=== PATIENT | female | born 1990 | race Caucasian/White ===

== ENCOUNTER 2018-09-13 11:05 | Inpatient (IN) | payer MEDICAID ==
[~2018-09-13] VITALS: Ht 165.1 cm; Wt 56.8 kg
[~2018-09-13 11:05] MED LIST: PREN1TAB49 PO
[2018-09-13] MEDS ORDERED: SOD CHLORIDE 0.9% 1,000 ML IV STA ×2 (11:58→13:04)
[2018-09-13] MEDS ORDERED: ONDANSETRON 4 MG INJ IV STA (11:58)
[2018-09-13] MEDS ORDERED: ACETAMINOPHEN 500 MG TAB PO STA (11:58)
[2018-09-13] MEDS ORDERED: morphine 4 MG/ML VIAL IV STA (11:58)
[2018-09-13] MEDS ORDERED: LIDOCAINE 1%/EPI 30 ML INJ INJ STA (13:01)
[2018-09-13] MEDS ORDERED: VANCOMYCIN 1 GM (PMX) 250 ML IVPB STA (13:25)
[2018-09-13] MEDS ORDERED: PIPER-TAZO 3.375 GM IV (PMX) 100 ML IVPB STA (13:25)
[2018-09-13] MEDS ORDERED: LIDOCAINE 1%/EPI (1:100,000) (MDV) 20 ML INJ STA (13:30)
--- NOTE | 2018-09-13 13:47 | ERD ---
ER Documentation Chief Complaint Chief Complaint VAGINAL ABSCESS X 1 WEEK HPI 28 year old female presents with fever and vaginal abscess that she has noted for 5 days. Patient denies medications. She denies nausea, vomiting, diarrhea, constipation or dysuria. She denies STD or , states that she had one female sexual partner about one month ago. ROS All systems reviewed and are negative except as per history of present illness. Medications Home Meds Reported Medications Vits W-Ca,Fe,Fa(<1MG) () 1 Tab Tablet, 1 PO DAILY, #30 08/21/11 Allergies Allergies: Coded Allergies: No Known Allergies (Verified Allergy, Mild, 04/27/10) PMhx/Soc History of Surgery: No Anesthesia Reaction: No Hx Neurological Disorder: No Hx Respiratory Disorders: No Hx Cardiac Disorders: No Hx Psychiatric Problems: No Hx Miscellaneous Medical Probl: No Hx Alcohol Use: No Hx Substance Use: No Hx Tobacco Use: No Physical Exam Vitals Vital Signs Date Temp Pulse Resp B/P (MAP) Pulse Ox O2 O2 Flow FiO2 Time Delivery Rate 09/13/18 101.2 123 18 125/80 99 11:08 (95) Physical Exam GENERAL: well-developed/well-nourished, in no apparent distress, non-toxic appearing HENT: NC/AT EYES: Conjunctiva normal NECK: Supple, no lymphadenopathy PULM: CTA bilaterally, no rales, rhonchi, or wheezing heard CV: Normal S1S2, RRR, good capillary refill GI: Soft, non-distended, tender to palpation in left pelvic region Normal bowel sounds, no masses or organomegaly felt on exam No gross peritonitis, no bruits Negative Rosvings, negative Moran, negative McBurney's point, negative CVAT : PELVIC EXAM: large Bartholin abscess noted in the left vaginal vault BACK: No midline tenderness, no masses EXT: No clubbing, cyanosis, or edema NEURO: Alert and Orientated, gait normal SKIN: Intact, normal turgor PSYCH: Normal mood and mentation Result Diagram: 09/13/18 1229 09/13/18 1229 Results 24 hrs Laboratory Tests Test 09/13/18 12:29 09/13/18 13:14 09/13/18 13:39 White Blood Count 22.2 10^3/ul Red Blood Count 4.84 10^6/ul Hemoglobin 13.8 g/dl Hematocrit 42.6 % Mean Corpuscular Volume 88.0 fl Mean Corpuscular Hemoglobin 28.5 pg Mean Corpuscular 32.4 g/dl Hemoglobin Concent Red Cell Distribution Width 12.7 % Platelet Count 432 10^3/UL Mean Platelet Volume 9.5 fl Immature Granulocytes % 1.000 % Neutrophils % 83.8 % Lymphocytes % 10.0 % Monocytes % 4.6 % Eosinophils % 0.2 % Basophils % 0.4 % Nucleated Red Blood Cells % 0.0 /100WBC Immature Granulocytes # 0.220 10^3/ul Neutrophils # 18.6 10^3/ul Lymphocytes # 2.2 10^3/ul Monocytes # 1.0 10^3/ul Eosinophils # 0.0 10^3/ul Basophils # 0.1 10^3/ul Nucleated Red Blood Cells # 0.0 10^3/ul Sodium Level 135 mmol/L Potassium Level 4.0 mmol/L Chloride Level 94 mmol/L Carbon Dioxide Level 31 mmol/L Anion Gap 10 Blood Urea Nitrogen 6 mg/dl Creatinine 0.60 mg/dl Est Glomerular Filtrat Rate mL/min > 60 mL/min Glucose Level 117 mg/dl Calcium Level 9.1 mg/dl Total Bilirubin 0.4 mg/dl Direct Bilirubin 0.00 mg/dl Indirect Bilirubin 0.4 mg/dl Aspartate Amino Transf (AST/SGOT) 422 IU/L Alanine 392 IU/L Aminotransferase (ALT/SGPT) Alkaline Phosphatase 155 IU/L Total Protein 8.4 g/dl Albumin 4.2 g/dl Globulin 4.20 g/dl Albumin/Globulin Ratio 1.00 Lipase 19 U/L POC Venous Lactate 1.1 mmol/L POC Beta HCG, Qualitative NEGATIVE Current Medications Medications Dose Sig/Claudia Start Time Status Last (Trade) Ordered Route PRN Stop Time Admin Dose Reason Admin Sodium 1,000 ml @ Q1H STAT 09/13/18 DC 09/13/18 Chloride 1,000 mls/hr IV 11:58 12:30 09/13/18 12:57 Morphine 4 mg ONCE STAT 09/13/18 DC 09/13/18 Sulfate IV 11:58 12:29 (morphine) 09/13/18 12:00 Ondansetron 4 mg ONCE STAT 09/13/18 DC 09/13/18 HCl (Zofran IV 11:58 12:28 Inj) 09/13/18 12:00 1,000 mg ONCE STAT 09/13/18 DC 09/13/18 Acetaminophen PO 11:58 12:29 (Tylenol 09/13/18 12:00 Tab) Lidocaine/ 30 ml ONCE STAT 09/13/18 DC Epinephrine INJ 13:01 (Xylocaine 09/13/18 13:02 1%/ Epi (Pf)) Sodium 1,000 ml @ Q1H STAT 09/13/18 09/13/18 Chloride 1,000 mls/hr IV 13:04 13:30 09/13/18 14:03 Vancomycin 250 ml @ ONCE STAT 09/13/18 HCl 125 mls/hr IVPB 13:25 09/13/18 15:24 Piperacillin 100 ml @ ONCE STAT 09/13/18 Sod/ 200 mls/hr IVPB 13:25 Tazobactam 09/13/18 13:54 Sod Lidocaine/ 20 ml ONCE STAT 09/13/18 DC Epinephrine INJ 13:30 (Xylocaine 09/13/18 13:31 1%/ Epi (Mdv) 20 ml) Procedures/MDM 28-year-old female presents with fever and large Bartholin's abscess that she has noted for the past 5 days. Abscess is large and may need operative management. Patient will be admitted to med/surge In the ED, access established. Patient was given a couple liters of fluids. Lab work was obtained, she had leukocytosis of 22.2 and elevated transaminases NICHOLAS DANIEL PA-C Sep 13, 2018 13:47
[2018-09-13] MEDS ORDERED: ACETAMINOPHEN 325 MG TAB PO PRN (14:30)
[2018-09-13] MEDS ORDERED: ONDANSETRON 4 MG INJ IV PRN ×2 (14:30→16:00)
[2018-09-13] MEDS ORDERED: BISACODYL 10 MG SUPP PR PRN (16:00)
[2018-09-13] MEDS ORDERED: NA PHOSPHATE/BIPHOS 133 ML ENEMA PR PRN (16:00)
[2018-09-13] MEDS ORDERED: ZOLPIDEM 5 MG TAB PO PRN (16:00)
[2018-09-13] MEDS ORDERED: morphine 2 MG INJ IV PRN (16:00)
[2018-09-13] MEDS ORDERED: DOCUSATE SODIUM 100 MG CAP PO PRN (16:00)
[2018-09-13] MEDS ORDERED: BISACODYL (EC) 5 MG TAB PO PRN (16:00)
[2018-09-13] MEDS ORDERED: NACL 0.9% 3 ML SYG IV SCH (16:00)
[2018-09-13] MEDS ORDERED: MAGNESIUM HYDROXIDE 30ML CUP PO PRN (16:00)
--- NOTE | 2018-09-13 16:13 | ERD ---
ER Documentation Chief Complaint Chief Complaint VAGINAL ABSCESS X 1 WEEK HPI Patient is a 28-year-old female with no medical problems who presents with left- sided Bartholin's abscess for the past 1 week. The patient's pain has been worsening and swelling has been worsening as well. She has fevers. She has had no treatment as of yet. ROS All systems reviewed and are negative except as per history of present illness. Medications Home Meds Reported Medications Vits W-Ca,Fe,Fa(<1MG) () 1 Tab Tablet, 1 PO DAILY, #30 08/21/11 Allergies Allergies: Coded Allergies: No Known Allergies (Verified Allergy, Mild, 04/27/10) PMhx/Soc Medical and Surgical Hx: pt denies Medical Hx, pt denies Surgical Hx History of Surgery: Yes (RIGHT HAND RING FINGER WITH PIN) Anesthesia Reaction: No Hx Neurological Disorder: No Hx Respiratory Disorders: Yes (ASTHMA) Hx Cardiac Disorders: No Hx Psychiatric Problems: No Hx Miscellaneous Medical Probl: No Hx Alcohol Use: No Hx Substance Use: No Hx Tobacco Use: Yes (1PACK/3DAYS) Smoking Status: Never smoker FmHx Family History: diabetes Physical Exam Vitals Vital Signs Date Temp Pulse Resp B/P (MAP) Pulse Ox O2 O2 Flow FiO2 Time Delivery Rate 09/13/18 98.6 113 20 107/62 99 Room Air 13:46 (77) 09/13/18 101.2 123 18 125/80 99 11:08 (95) Physical Exam Const: Moderate distress Head: Atraumatic Eyes: Normal Conjunctiva ENT: Normal External Ears, Nose and Mouth. Neck: Full range of motion. No meningismus. Resp: Clear to auscultation bilaterally Cardio: Tachycardic rate without murmur Abd: Soft, non tender, non distended. Normal bowel sounds Skin: No petechiae or rashes Back: No midline or flank tenderness Ext: No cyanosis, or edema Neur: Awake and alert : Bartholin's abscess to the left labia Result Diagram: 09/13/18 1229 09/13/18 1229 Results 24 hrs Laboratory Tests Test 09/13/18 12:29 09/13/18 13:14 09/13/18 13:39 09/13/18 14:02 White Blood Count 22.2 10^3/ul Red Blood Count 4.84 10^6/ul Hemoglobin 13.8 g/dl Hematocrit 42.6 % Mean Corpuscular 88.0 fl Volume Mean Corpuscular 28.5 pg Hemoglobin Mean Corpuscular 32.4 g/dl Hemoglobin Concent Red Cell 12.7 % Distribution Width Platelet Count 432 10^3/UL Mean Platelet 9.5 fl Volume Immature 1.000 % Granulocytes % Neutrophils % 83.8 % Lymphocytes % 10.0 % Monocytes % 4.6 % Eosinophils % 0.2 % Basophils % 0.4 % Nucleated Red 0.0 /100WBC Blood Cells % Immature 0.220 10^3/ul Granulocytes # Neutrophils # 18.6 10^3/ul Lymphocytes # 2.2 10^3/ul Monocytes # 1.0 10^3/ul Eosinophils # 0.0 10^3/ul Basophils # 0.1 10^3/ul Nucleated Red 0.0 10^3/ul Blood Cells # Urine Color YELLOW Urine Clarity SLIGHTLY CLOUDY Urine pH 5.0 Urine Specific 1.014 [place] Urine Ketones NEGATIVE mg/dL Urine Nitrite NEGATIVE mg/dL Urine Bilirubin NEGATIVE mg/dL Urine Urobilinogen 2+ mg/dL Urine Leukocyte 2+ Kathie/ul Esterase Urine Microscopic 4 /HPF RBC Urine Microscopic 13 /HPF WBC Urine Squamous FEW /HPF Epithelial Cells Urine Amorphous FEW /HPF Crystals Urine Bacteria FEW /HPF Urine Mucus MODERATE /HPF Urine Hemoglobin NEGATIVE mg/dL Urine Glucose NEGATIVE mg/dL Urine Total NEGATIVE mg/dl Protein Sodium Level 135 mmol/L Potassium Level 4.0 mmol/L Chloride Level 94 mmol/L Carbon Dioxide 31 mmol/L Level Anion Gap 10 Blood Urea 6 mg/dl Nitrogen Creatinine 0.60 mg/dl Est Glomerular > 60 mL/min Filtrat Rate mL/min Glucose Level 117 mg/dl Calcium Level 9.1 mg/dl Total Bilirubin 0.4 mg/dl Direct Bilirubin 0.00 mg/dl Indirect Bilirubin 0.4 mg/dl Aspartate Amino 422 IU/L Transf (AST/SGOT) Alanine 392 IU/L Aminotransferase ( ALT/SGPT) Alkaline 155 IU/L Phosphatase Total Protein 8.4 g/dl Albumin 4.2 g/dl Globulin 4.20 g/dl Albumin/Globulin 1.00 Ratio Lipase 19 U/L POC Venous Lactate 1.1 mmol/L 0.3 mmol/L POC Beta HCG, NEGATIVE Qualitative Current Medications Medications Dose Sig/Claudia Start Time Status Last (Trade) Ordered Route PRN Stop Time Admin Dose Reason Admin Sodium 1,000 ml @ Q1H STAT 09/13/18 DC 09/13/18 Chloride 1,000 mls/hr IV 11:58 12:30 09/13/18 12:57 Morphine 4 mg ONCE STAT 09/13/18 DC 09/13/18 Sulfate IV 11:58 12:29 (morphine) 09/13/18 12:00 Ondansetron 4 mg ONCE STAT 09/13/18 DC 09/13/18 HCl (Zofran IV 11:58 12:28 Inj) 09/13/18 12:00 1,000 mg ONCE STAT 09/13/18 DC 09/13/18 Acetaminophen PO 11:58 12:29 (Tylenol 09/13/18 12:00 Tab) Lidocaine/ 30 ml ONCE STAT 09/13/18 DC Epinephrine INJ 13:01 (Xylocaine 09/13/18 13:02 1%/ Epi (Pf)) Sodium 1,000 ml @ Q1H STAT 09/13/18 DC 09/13/18 Chloride 1,000 mls/hr IV 13:04 13:30 09/13/18 14:03 Vancomycin 250 ml @ ONCE STAT 09/13/18 DC 09/13/18 HCl 125 mls/hr IVPB 13:25 15:26 09/13/18 15:24 Piperacillin 100 ml @ ONCE STAT 09/13/18 DC 09/13/18 Sod/ 200 mls/hr IVPB 13:25 14:01 Tazobactam 09/13/18 13:54 Sod Lidocaine/ 20 ml ONCE STAT 09/13/18 DC Epinephrine INJ 13:30 (Xylocaine 09/13/18 13:31 1%/ Epi (Mdv) 20 ml) Ondansetron 4 mg BRIDGE ORDER 09/13/18 HCl (Zofran PRN IV 14:30 Inj) NAUSEA/VOMITI 09/14/18 14:29 NG 650 mg ER BRIDGE 09/13/18 Acetaminophen PRN PO 14:30 (Tylenol .MILD PAIN 09/14/18 14:29 Tab) 1-3 OR TEMP Sodium 1,000 ml @ Q8H IV 09/13/18 Chloride 125 mls/hr 15:38 IV Flush 3 ml PER 09/13/18 (NS 3 ml) PROTOCOL IV 16:00 Ondansetron 4 mg Q6H PRN 2/15/19 HCl (Zofran IV 16:00 Inj) NAUSEA/VOMITI NG 650 mg Q6H PRN 09/13/18 Acetaminophen PO .PAIN 1-3 16:00 (Tylenol OR TEMP Tab) Morphine 2 mg Q4H PRN 09/13/18 Sulfate IV .SEVERE 16:00 (morphine) PAIN 7-10 Docusate 100 mg Q12H PRN 09/13/18 Sodium PO 16:00 (Colace) .CONSTIPATION Magnesium 30 ml DAILY PRN 09/13/18 Hydroxide PO 16:00 (Milk Of Mag) .CONSTIPATION Bisacodyl 5 mg DAILY PRN 09/13/18 (Dulcolax) PO 16:00 .CONSTIPATION Bisacodyl 10 mg DAILY PRN 09/13/18 (Dulcolax [place] 16:00 Supp) .CONSTIPATION Sodium 133 ml DAILY PRN 09/13/18 Biphosphate/ [place] 16:00 Sodium .CONSTIPATION Phosphate (Fleet Enema) Zolpidem 5 mg QHS PRN 09/13/18 Tartrate PO .INSOMNIA 16:00 (Ambien) Piperacillin 100 ml @ Q6 IVPB 09/13/18 Sod/ 200 mls/hr 19:00 Tazobactam Sod Procedures/MDM Sepsis Documentation: Patient's infectious symptoms have not stabilized and the patient is at risk of rapid decompensation. The patient will be admitted for careful hydration, antibiotic therapy, and infectious source control. SEVERE SEPSIS CRITERIA: Infectious source: Bartholin's abscess End organ damage indicated by: Elevated liver tests SEPSIS MANAGEMENT Time of recognition of sepsis: 1228. Time of recognition of severe sepsis: 1228. Time of recognition of septic shock: No septic shock at this time. 3 HOUR BUNDLE Blood cultures x 2 before broad-spectrum antibiotics: Yes 30 ml/kg NS bolus completed Initial lactate 1.1 Repeat lactate 0.3 SEPTIC SHOCK ASSESSMENT: No lactic acid > 4.0 No persistent hypotension (SBP < 90 or 40 mmHg drop, MAP < 65) despite 30 mL/kg IV fluid bolus VOLUME REASSESSMENT FOR SEPTIC SHOCK: No septic shock at this time PERSISTENT HYPOTENSION TREATMENT: Comfort care no Central line not Required Vasopressor started not required I considered further perfusion assessment with CVP measurement, SCVO2, bedside ultrasound volume assessment, passive leg raise, trial of further fluid bolus. And proceeded with 30 ml/kg fluid bolus of NSS, broad spectrum antibiotics, and admission. I spoke with Dr. Velez from gynecology who is going to take the patient to the operating room for drainage of the Bartholin's abscess. I spoke with the panel team for admission. CRITICAL CARE Critical care time 35 minutes Emergent fluid management while maintaining close respiratory support. Provision of immediate and broad-spectrum antibiotic therapy. Simultaneous assessment for possible sources in order to direct targeted therapy. Consideration for invasive and chemical support to prevent cardiopulmonary collapse. Critical care time is independent of procedures performed. Departure Diagnosis: Primary Impression: Severe sepsis Additional Impression: Abscess Condition: Serious ZITA FARMER MD Sep 13, 2018 16:13
[2018-09-13 16:50] VITALS: BP 106/61; PULSE 100; RESP 18
--- NOTE | 2018-09-13 16:52 | HP ---
Date/Time of Note Date/Time of Note DATE: 09/13/18 TIME: 16:46 Assessment/Plan VTE Prophylaxis SCD contraindicated: low risk/ambulating Pharmacological prophylaxis: NA/contraindicated Pharm contraindication: low risk/ambulating Lines/Catheters IV Catheter Type (from Nrsg): Saline Lock Assessment/Plan Hospital Course Chief complaint perineal wound/growth History of present illness 28-year-old female who is noticed in usual growth wound in her perineum. Possibly has generalized symptoms such as fever. No weight loss nausea vomiting. ER: Stable vital signs [employer] consulted. Past medical history Tobacco abuse Rectal abscess? Cellulitis extremity abscess nephrolithiasis Past surgical history I&D or debridement Social history Tobacco Family history There is no family history of early coronary disease cancer stroke Review of systems Neuro: No loss of speech or vision no focal deficits Cardiovascular: No chest pain no dyspnea no edema Lungs: No cough no wheezing no fever Abdomen: No nausea vomiting no abdominal pain. Positive for perineal pain Genitourinary: Positive for perineal pain no dysuria hematuria or stones Endocrine: No diabetes dyslipidemia or thyroid dysfunction Muscular skeletal: No gait dysfunction no rash no itching no edema Psychiatry: No focal no anxiety agitation depression Constitutional: Possible for chills no Reiger Hematological system: No hematochezia hematuria melena Physical exam No pallor adenopathy icterus Regular Clear Benign No edema Assessment and plan 1. Bartholins cyst possible abscess mod stable consult [employer] -Low perioperative risk, active chest pain dyspnea, may proceed forward to surgery should it be required 2. Abnormal LFTs will evaluate for hepatitis. No pain or jaundice completely asymptomatic 3. Tobacco abuse status post counseling 4. Suspected severe sepsis, on stable continue supportive care Result Diagram: 09/13/18 1229 09/13/18 1229 Results 24hrs Laboratory Tests Test 09/13/18 12:29 09/13/18 13:14 09/13/18 13:39 09/13/18 14:02 White Blood Count 22.2 H Red Blood Count 4.84 Hemoglobin 13.8 Hematocrit 42.6 Mean Corpuscular 88.0 Volume Mean Corpuscular 28.5 L Hemoglobin Mean Corpuscular 32.4 Hemoglobin Concen t Red Cell 12.7 Distribution Width Platelet Count 432 H Mean Platelet 9.5 Volume Immature 1.000 H Granulocytes % Neutrophils % 83.8 H Lymphocytes % 10.0 L Monocytes % 4.6 Eosinophils % 0.2 Basophils % 0.4 Nucleated Red 0.0 Blood Cells % Immature 0.220 H Granulocytes # Neutrophils # 18.6 H Lymphocytes # 2.2 Monocytes # 1.0 H Eosinophils # 0.0 Basophils # 0.1 Nucleated Red 0.0 Blood Cells # Urine Color YELLOW Urine Clarity SLIGHTLY CLOUDY A Urine pH 5.0 Urine Specific 1.014 [place] Urine Ketones NEGATIVE Urine Nitrite NEGATIVE Urine Bilirubin NEGATIVE Urine 2+ H Urobilinogen Urine Leukocyte 2+ H Esterase Urine Microscopic 4 RBC Urine Microscopic 13 H WBC Urine Squamous FEW Epithelial Cells Urine Amorphous FEW A Crystals Urine Bacteria FEW A Urine Mucus MODERATE Urine Hemoglobin NEGATIVE Urine Glucose NEGATIVE Urine Total NEGATIVE Protein Sodium Level 135 Potassium Level 4.0 Chloride Level 94 L Carbon Dioxide 31 Level Anion Gap 10 Blood Urea 6 L Nitrogen Creatinine 0.60 Est Glomerular > 60 Filtrat Rate mL/min Glucose Level 117 Calcium Level 9.1 Total Bilirubin 0.4 Direct Bilirubin 0.00 Indirect 0.4 Bilirubin Aspartate Amino 422 H Transf (AST/SGOT) Alanine 392 H Aminotransferase (ALT/SGPT) Alkaline 155 H Phosphatase Total Protein 8.4 H Albumin 4.2 Globulin 4.20 H Albumin/Globulin 1.00 Ratio Lipase 19 L POC Venous 1.1 0.3 L Lactate POC Beta HCG, NEGATIVE Qualitative HPI/ROS Admit Date/Time Admit Date/Time Sep 13, 2018 at 16:39 PMH/Family/Social Past Medical History Medications Current Medications Sodium Chloride 1,000 ml @ 125 mls/hr Q8H IV ; Start 09/13/18 at 15:38 IV Flush (NS 3 ml) 3 ml PER PROTOCOL IV ; Start 09/13/18 at 16:00 Ondansetron HCl (Zofran Inj) 4 mg Q6H PRN IV NAUSEA/VOMITING; Start 09/13/18 at 16:00 Acetaminophen (Tylenol Tab) 650 mg Q6H PRN PO .PAIN 1-3 OR TEMP; Start 09/13/18 at 16:00 Morphine Sulfate (morphine) 2 mg Q4H PRN IV .SEVERE PAIN 7-10; Start 09/13/18 at 16:00 Docusate Sodium (Colace) 100 mg Q12H PRN PO .CONSTIPATION; Start 09/13/18 at 16:00 Magnesium Hydroxide (Milk Of Mag) 30 ml DAILY PRN PO .CONSTIPATION; Start 09/13/18 at 16:00 Bisacodyl (Dulcolax) 5 mg DAILY PRN PO .CONSTIPATION; Start 09/13/18 at 16:00 Bisacodyl (Dulcolax Supp) 10 mg DAILY PRN DC .CONSTIPATION; Start 09/13/18 at 16:00 Sodium Biphosphate/ Sodium Phosphate (Fleet Enema) 133 ml DAILY PRN DC .CONSTIPATION; Start 09/13/18 at 16:00 Zolpidem Tartrate (Ambien) 5 mg QHS PRN PO .INSOMNIA; Start 09/13/18 at 16:00 Piperacillin Sod/ Tazobactam Sod 100 ml @ 200 mls/hr Q6 IVPB ; Start 09/13/18 at 19:00 Coded Allergies: No Known Allergies (Verified Allergy, Mild, 04/27/10) Social History Smoking Status: Never smoker Exam/Review of Systems Vital Signs Vitals Vital Signs Date Temp Pulse Resp B/P (MAP) Pulse Ox O2 O2 Flow FiO2 Time Delivery Rate 09/13/18 98.6 104 16 109/64 99 Room Air 16:24 (79) JESSA OBANDO MD Sep 13, 2018 16:52
[2018-09-13 18:04] VITALS: Ht 165.1 cm; Wt 56.8 kg
[2018-09-13] MEDS: PIPER-TAZO 3.375 GM IV (PMX) 100 ML IVPB SCH ×2 (18:35→23:36)
[2018-09-13] MEDS: SOD CHLORIDE 0.9% 1,000 ML IV SCH ×2 (18:38→23:38)
[2018-09-13 20:10] VITALS: BP 110/70; PULSE 98; RESP 18
[2018-09-13] MEDS: ACETAMINOPHEN 325 MG TAB PO PRN (21:47)
[2018-09-14] MEDS: morphine 4 MG/ML VIAL IV PRN ×5 (00:14→23:56)
[2018-09-14 02:05] VITALS: BP 103/65; PULSE 92; RESP 18
[2018-09-14] MEDS: PIPER-TAZO 3.375 GM IV (PMX) 100 ML IVPB SCH ×3 (05:23→17:08)
[2018-09-14] MEDS: SOD CHLORIDE 0.9% 1,000 ML IV SCH ×3 (05:23→23:51)
[2018-09-14 09:00] VITALS: BP 118/75; PULSE 102; RESP 18
[2018-09-14] MEDS ORDERED: INFLUENZA VIRUS VACCINE 0.5 ML (DISPENSING) IM* ONE (09:00)
[2018-09-14 14:00] VITALS: BP 120/75; PULSE 104; RESP 18
[2018-09-14] MEDS: ACETAMINOPHEN 325 MG TAB PO PRN (15:35)
[2018-09-14] MEDS ORDERED: morphine 4 MG/ML VIAL IV PRN (18:30)
--- NOTE | 2018-09-14 21:16 | HP ---
Date/Time of Note Date/Time of Note DATE: 09/14/18 TIME: 21:08 Assessment/Plan VTE Prophylaxis Risk score (from Nsg)>0 risk: 2 SCD applied (from Nsg): Yes SCD contraindicated: low risk/ambulating Pharmacological prophylaxis: NA/contraindicated Lines/Catheters IV Catheter Type (from Nrsg): Peripheral IV Central line still needed: No Urinary Cath still in place: No Assessment/Plan Hospital Course Admitted for left labia swelling, tenderness, exam consistent with vulvar abscess No evidence of diabetes. Hemoglobin A1c normal STD lab requested, HIV and hepatitis C, RPR requested Cannot rule out MRSA. Discussed with hospitalist recommended to switch to vancomycin Lactic acid normal. Abscess amenable to drainage Discussed with the patient and RN to start warm compress of the vulva Consider sending the past for culture and sensitivity after drainage Pelvic ultrasound did not reveal any evidence of pyosalpinx, cysts or pelvic abscess Patient will be kept n.p.o. overnight Patient is uncooperative. Frustrated and poor historical Will discuss tomorrow prior to go to the OR about risk and benefit and consent Problems: (1) Abscess Comment: Left vulvar abscess fluctuating. With still some induration in the lateral sort of abscess Consider drainage tomorrow Keep patient n.p.o. after midnight (2) Severe sepsis Status: Acute Comment: Improving. Lactic acid normal Patient had been on broad-spectrum antibiotics CBC tomorrow (3) Transaminitis Status: Chronic Comment: Transaminitis, unclear etiology. Discussed with hospitalist dosage of vancomycin will be adjusted by pharmacy Etiology of transaminitis to be determined. Hepatitis panel requested including hepatitis C and hepatitis A labs Assessment/Plan Left vulvar abscess, clear etiology. STD labs requested, GC/chlamydia and hepatitis B panel negative. HIV and RPR requested Recommended to cover for MRSA. Currently on Zosyn. Discussed with hospitalist suzanne, recommended switch to vancomycin pain control Exam shows > 50 % fluctuating, and able to drainage tomorrow There is a still some induration along the lateral side of the abscess. Recommended to start warm compress Keep the patient n.p.o. after midnight Result Diagram: 09/14/18 0800 09/14/18 0800 Results 24hrs Laboratory Tests Test 09/14/18 07:35 09/14/18 07:48 09/14/18 08:00 Prothrombin Time 16.6 H Prothrombin Time Ratio 1.3 INR International Normalized Ratio 1.33 Hepatitis B Surface Antigen NEGATIVE Hepatitis B Core Total Antibody NEGATIVE Hepatitis C Antibody NEGATIVE White Blood Count 21.3 H Red Blood Count 4.17 L Hemoglobin 12.1 Hematocrit 37.6 Mean Corpuscular Volume 90.2 Mean Corpuscular Hemoglobin 29.0 Mean Corpuscular Hemoglobin Concent 32.2 Red Cell Distribution Width 12.9 Platelet Count 361 Mean Platelet Volume 9.7 Immature Granulocytes % 0.800 H Neutrophils % 86.5 H Lymphocytes % 8.0 L Monocytes % 4.0 Eosinophils % 0.6 Basophils % 0.1 Nucleated Red Blood Cells % 0.0 Immature Granulocytes # 0.160 H Neutrophils # 18.4 H Lymphocytes # 1.7 Monocytes # 0.9 Eosinophils # 0.1 Basophils # 0.0 Nucleated Red Blood Cells # 0.0 Sodium Level 136 Potassium Level 4.4 Chloride Level 102 Carbon Dioxide Level 27 Anion Gap 7 Blood Urea Nitrogen 4 L Creatinine 0.57 Est Glomerular Filtrat Rate mL/min > 60 Glucose Level 95 Hemoglobin A1c 5.2 Calcium Level 8.4 Phosphorus Level 2.8 Magnesium Level 1.8 Total Bilirubin 0.5 Direct Bilirubin 0.00 Indirect Bilirubin 0.5 Aspartate Amino Transf (AST/SGOT) 134 H Alanine Aminotransferase (ALT/SGPT) 238 H Alkaline Phosphatase 151 H Total Protein 6.9 # Albumin 3.4 Globulin 3.50 H Albumin/Globulin Ratio 0.97 Triglycerides Level 44 Cholesterol Level 99 L LDL Cholesterol, Calculated 57 HDL Cholesterol 33 Cholesterol/HDL Ratio 3.0 Thyroid Stimulating Hormone (TSH) 2.390 HPI/ROS Admit Date/Time Admit Date/Time Sep 13, 2018 at 16:39 Hx of Present Illness 28-year-old female admitted to the hospital due to pain and tenderness and swelling in the left labia area as well as fever, concerning for labial abscess patient had been currently receiving broad-spectrum antibiotics, Zosyn for treatment of abscess DISABILITY HEARING OFFICER has been consulted yesterday. For patient evaluation when the patient was in the emergency room Dr. Velez had seen the patient and apparently discussed with the patient regarding drainage in the ER and patient declined drainage without anesthesia. Case has been assigned to sc for evaluation. Patient had been currently admitted to medicine service. Had apparently a temperature 101.2 yesterday but since then only low-grade elevated temperature. Attended to the patient for DISABILITY HEARING OFFICER evaluation. . x1. Patient's symptoms started a week ago with feeling a tender bulge in the left labia that increase in the size as well as tenderness and swelling. Patient reports history of rectal abscess in the past status post drainage. Reports not been sexually active for the last 2 months. Had been heterosexual in the past but had been homosexual for the past few years. Denies using any contraception due to same-sex relationship but denies being sexually active for the last 2 months. Patient denies any history of STD or pelvic infection in the past. Had a CT of the abdomen and pelvis that showed evidence of soft tissue swelling and left inguinal lymphadenopathy with stranding as well as left cystic structure in the pelvis questionable for cyst versus pyosalpinx. Pelvic ultrasound showed normal size uterus and normal adnexa with no evidence of ovarian cyst, abscess or infection. ROS Subjective hx not possible: other (Patient reports discomfort and pain due to swelling in the left labial area, has been taking pain medication) Constitutional: febrile Eyes: no complaints ENT: no complaints Respiratory: no complaints Cardiovascular: no complaints Gastrointestinal: no complaints Genitourinary: other (Pain in the left labia) Musculoskeletal: no complaints PMH/Family/Social Past Medical History Denies any medical problems in the past Medications Current Medications Sodium Chloride 1,000 ml @ 125 mls/hr Q8H IV Last administered on 09/14/18at 1 4:17; Admin Dose 125 MLS/HR; Start 09/13/18 at 15:38 IV Flush (NS 3 ml) 3 ml PER PROTOCOL IV ; Start 09/13/18 at 16:00 Ondansetron HCl (Zofran Inj) 4 mg Q6H PRN IV NAUSEA/VOMITING; Start 09/13/18 at 16:00 Acetaminophen (Tylenol Tab) 650 mg Q6H PRN PO .PAIN 1-3 OR TEMP Last administered on 09/14/18at 15:35; Admin Dose 650 MG; Start 09/13/18 at 16:00 Docusate Sodium (Colace) 100 mg Q12H PRN PO .CONSTIPATION; Start 09/13/18 at 16:00 Magnesium Hydroxide (Milk Of Mag) 30 ml DAILY PRN PO .CONSTIPATION; Start 09/13/18 at 16:00 Bisacodyl (Dulcolax) 5 mg DAILY PRN PO .CONSTIPATION; Start 09/13/18 at 16:00 Bisacodyl (Dulcolax Supp) 10 mg DAILY PRN [place] .CONSTIPATION; Start 09/13/18 at 16:00 Sodium Biphosphate/ Sodium Phosphate (Fleet Enema) 133 ml DAILY PRN [place] .CONSTIPATION; Start 09/13/18 at 16:00 Zolpidem Tartrate (Ambien) 5 mg QHS PRN PO .INSOMNIA; Start 09/13/18 at 16:00 Piperacillin Sod/ Tazobactam Sod 100 ml @ 200 mls/hr Q6 IVPB Last administered on 09/14/18at 17:08; Admin Dose 200 MLS/HR; Start 09/13/18 at 19:00 Morphine Sulfate (morphine) 4 mg Q3H PRN IV SEVERE PAIN LEVEL 7-10 Last administered on 09/14/18at 18:41; Admin Dose 4 MG; Start 09/14/18 at 18:30 Coded Allergies: No Known Allergies (Verified Allergy, Mild, 04/27/10) Past Surgical History Reports history of surgery in her right hand finger, for removal of pin Social History Smoking Status: Current every day smoker Drug Use: other (Patient is frustrated and poorly historian) Exam/Review of Systems Vital Signs Vitals Vital Signs Date Temp Pulse Resp B/P (MAP) Pulse Ox O2 O2 Flow FiO2 Time Delivery Rate 09/14/18 100.3 16:20 09/14/18 104 18 120/75 100 Room Air 14:00 (90) Intake and Output 09/13/18 09/13/18 09/14/18 1414:59 22:59 06:59 IntakeIntake Total 2690 ml 2540 ml BalanceBalance 2690 ml 2540 ml Exam Constitutional: alert, oriented, distress Psych: anxiety, other (Frustrated) Head: normocephalic, atraumatic Eyes: nl conjunctiva, EOMI Genitourinary - Female: other (External genitalia with evidence of moderate to severe swelling of the left labia majora and minora with fluctuation in the middle side as well as some induration in the lateral side of the left labia. Patient has difficulty tolerating the exam. Could not be able to do the pelvic exam. No abnormal discharge in the perineum noted. Right labia normal. Patient refused further examination) Additional Comments PROCEDURE: CT Abdomen and Pelvis with contrast CLINICAL INDICATION: Left lower quadrant abdominal pain TECHNIQUE: Transaxial computed tomographic images of the abdomen and pelvis were obtained following the uneventful administration of 90 mL Omnipaque-300 i ntravenous contrast according to standard protocol. Coronal and sagittal reformatted images were provided. DICOM images are available. Radiation dose: CTDIvol (mGy) = 5.31; total DLP (mGy.cm) = 315.46. One or more of the following dose reduction techniques were used: - Automated exposure control. - Adjustment of the mA and/or kV according to patient size. - Use of iterative reconstruction technique. COMPARISON: None. FINDINGS: The visualized lung bases are clear. There is no pleural effusion. The liver, gallbladder, spleen, pancreas, adrenal glands, and left kidney are normal. There is mild right renal caliectasis without visible obstructing calculus. There is no evidence of intestinal obstruction. The appendix is normal. There is no abdominal aortic aneurysm. There is no free intraperitoneal air or fluid. Urinary bladder is partially distended and unremarkable. Uterus is within normal limits. Cystic right adnexal lesion measuring 5 x 1.5 cm is seen. There is no suspicious mesenteric or retroperitoneal lymphadenopathy. Mildly enlarged left inguinal lymph nodes measure up to 1.6 cm in short axis. Right inguinal lymph nodes measure up to 10 mm in short axis. Multiple subcentimeter bilateral pelvic sidewall lymph nodes are nonspecific. There is moderate presacral edema. There is moderate anterior perineal and peripubic subcutaneous fat stranding and edema. There is an irregular shape fluid collection in the anterior perineal region measuring approximately 4.3 x 1.6 x 2.4 cm. The osseous structures of the abdomen and pelvis are intact. IMPRESSION: 1. Marked inflammatory changes and subcutaneous edema in the anterior perineal and peripubic region with irregular fluid collection in the anterior perineal region concerning for abscess. 2. Cystic right adnexal lesion, may represent ovarian cysts or hydrosalpinx. Recommend follow-up pelvic sonogram. 3. Presacral edema. 4. Mild left inguinal lymphadenopathy. PROCEDURE: US Pelvis. CLINICAL INDICATION: pelvic pain TECHNIQUE: Multiple sonographic images of the pelvis were obtained utilizing transabdominal technique. The images were reviewed on a PACS workstation. COMPARISON: None. FINDINGS: The uterus is normal in size with a normal appearance of the myometrium. The uterus measures 7.9 x 4.2 x 5.4 cm. The endometrial stripe is homogeneous in appearance and has the thickness of 8 mm. The ovaries are normal in size and echogenicity. Normal Doppler flow is identi fied in both ovaries. The right ovary measures 2.9 x 1.5 x 2.4 cm. The left ovary measures 2.9 x 1.8 x 1.9 cm. No free fluid is present within the pelvis. RPTAT: AA IMPRESSION: Unremarkable pelvic ultrasound. HO TOMPKINS MD Sep 14, 2018 21:16
[2018-09-14 21:49] VITALS: BP 142/87; PULSE 92; RESP 18
[2018-09-14] MEDS ORDERED: VANCOMYCIN IV PER PHARMACY XX SCH (22:00)
[2018-09-14] MEDS ORDERED: HYDROmorphONE 0.5 MG/0.5 ML SYG IV PRN (22:00)
--- NOTE | 2018-09-14 22:01 | PN ---
Date/Time of Note Date/Time of Note DATE: 09/14/18 TIME: 21:54 Assessment/Plan VTE Prophylaxis Risk score (from Ns)>0 risk: 2 SCD applied (from [facility] [place] Yes SCD contraindicated: low risk/ambulating Pharmacological prophylaxis: NA/contraindicated Pharm contraindication: surgical contra Lines/Catheters IV C[facility]ter Type (from [facility]): Peripheral IV Urinary Cath still in place: No Assessment/Plan Hospital Course A/P 1. Vulvar abscess, stable cont antibiotics -Low perioperative risk, no active chest pain dyspnea, may proceed forward to surgery from medical standpoint 2. Abn LFTs will evaluate for hepatitis/ hiv. No pain or jaundice, asymptomatic 3. Tobacco abuse status post counseling 4. Suspected severe sepsis, stable cont supportive care 5. H/o Rectal abscess? 6. H/o Cellulitis/ abscess extremity 7. H/o Nephrolithiasis S: mod pain, fever, abn blood culture O: vss; except fever PE No pallor Regular Clear Benign No edema Result Diagram: 09/14/18 0800 09/14/18 0800 Results 24hrs Laboratory Tests Test 09/14/18 07:35 09/14/18 07:48 09/14/18 08:00 Prothrombin Time 16.6 H Prothrombin Time Ratio 1.3 INR International Normalized Ratio 1.33 Hepatitis B Surface Antigen NEGATIVE Hepatitis B Core Total Antibody NEGATIVE Hepatitis C Antibody NEGATIVE White Blood Count 21.3 H Red Blood Count 4.17 L Hemoglobin 12.1 Hematocrit 37.6 Mean Corpuscular Volume 90.2 Mean Corpuscular Hemoglobin 29.0 Mean Corpuscular Hemoglobin Concent 32.2 Red Cell Distribution Width 12.9 Platelet Count 361 Mean Platelet Volume 9.7 Immature Granulocytes % 0.800 H Neutrophils % 86.5 H Lymphocytes % 8.0 L Monocytes % 4.0 Eosinophils % 0.6 Basophils % 0.1 Nucleated Red Blood Cells % 0.0 Immature Granulocytes # 0.160 H Neutrophils # 18.4 H Lymphocytes # 1.7 Monocytes # 0.9 Eosinophils # 0.1 Basophils # 0.0 Nucleated Red Blood Cells # 0.0 Sodium Level 136 Potassium Level 4.4 Chloride Level 102 Carbon Dioxide Level 27 Anion Gap 7 Blood Urea Nitrogen 4 L Creatinine 0.57 Est Glomerular Filtrat Rate mL/min > 60 Glucose Level 95 Hemoglobin A1c 5.2 Calcium Level 8.4 Phosphorus Level 2.8 Magnesium Level 1.8 Total Bilirubin 0.5 Direct Bilirubin 0.00 Indirect Bilirubin 0.5 Aspartate Amino Transf (AST/SGOT) 134 H Alanine Aminotransferase (ALT/SGPT) 238 H Alkaline Phosphatase 151 H Total Protein 6.9 # Albumin 3.4 Globulin 3.50 H Albumin/Globulin Ratio 0.97 Triglycerides Level 44 Cholesterol Level 99 L LDL Cholesterol, Calculated 57 HDL Cholesterol 33 Cholesterol/HDL Ratio 3.0 Thyroid Stimulating Hormone (TSH) 2.390 Exam/Review of Systems Exam Vitals Vital Signs Date Temp Pulse Resp B/P (MAP) Pulse Ox O2 O2 Flow FiO2 Time Delivery Rate 09/14/18 98.7 92 18 142/87 94 Room Air 21:49 (105) Intake and Output 09/13/18 09/13/18 09/14/18 1515:00 23:00 07:00 IntakeIntake Total 2690 ml 2540 ml BalanceBalance 2690 ml 2540 ml Results Results 24hrs Laboratory Tests Test 09/14/18 07:35 09/14/18 07:48 09/14/18 08:00 Prothrombin Time 16.6 H Prothrombin Time Ratio 1.3 INR International Normalized Ratio 1.33 Hepatitis B Surface Antigen NEGATIVE Hepatitis B Core Total Antibody NEGATIVE Hepatitis C Antibody NEGATIVE White Blood Count 21.3 H Red Blood Count 4.17 L Hemoglobin 12.1 Hematocrit 37.6 Mean Corpuscular Volume 90.2 Mean Corpuscular Hemoglobin 29.0 Mean Corpuscular Hemoglobin Concent 32.2 Red Cell Distribution Width 12.9 Platelet Count 361 Mean Platelet Volume 9.7 Immature Granulocytes % 0.800 H Neutrophils % 86.5 H Lymphocytes % 8.0 L Monocytes % 4.0 Eosinophils % 0.6 Basophils % 0.1 Nucleated Red Blood Cells % 0.0 Immature Granulocytes # 0.160 H Neutrophils # 18.4 H Lymphocytes # 1.7 Monocytes # 0.9 Eosinophils # 0.1 Basophils # 0.0 Nucleated Red Blood Cells # 0.0 Sodium Level 136 Potassium Level 4.4 Chloride Level 102 Carbon Dioxide Level 27 Anion Gap 7 Blood Urea Nitrogen 4 L Creatinine 0.57 Est Glomerular Filtrat Rate mL/min > 60 Glucose Level 95 Hemoglobin A1c 5.2 Calcium Level 8.4 Phosphorus Level 2.8 Magnesium Level 1.8 Total Bilirubin 0.5 Direct Bilirubin 0.00 Indirect Bilirubin 0.5 Aspartate Amino Transf (AST/SGOT) 134 H Alanine Aminotransferase (ALT/SGPT) 238 H Alkaline Phosphatase 151 H Total Protein 6.9 # Albumin 3.4 Globulin 3.50 H Albumin/Globulin Ratio 0.97 Triglycerides Level 44 Cholesterol Level 99 L LDL Cholesterol, Calculated 57 HDL Cholesterol 33 Cholesterol/HDL Ratio 3.0 Thyroid Stimulating Hormone (TSH) 2.390 Medications Medication Current Medications Sodium Chloride 1,000 ml @ 125 mls/hr Q8H IV Last administered on 09/14/18at 14:17; Admin Dose 125 MLS/HR; Start 09/13/18 at 15:38 IV Flush (NS 3 ml) 3 ml PER PROTOCOL IV ; Start 09/13/18 at 16:00 Ondansetron HCl (Zofran Inj) 4 mg Q6H PRN IV NAUSEA/VOMITING; Start 09/13/18 at 16:00 Acetaminophen (Tylenol Tab) 650 mg Q6H PRN PO .PAIN 1-3 OR TEMP Last administered on 09/14/18at 15:35; Admin Dose 650 MG; Start 09/13/18 at 16:00 Docusate Sodium (Colace) 100 mg Q12H PRN PO .CONSTIPATION; Start 09/13/18 at 16:00 Magnesium Hydroxide (Milk Of Mag) 30 ml DAILY PRN PO .CONSTIPATION; Start 09/13/18 at 16:00 Bisacodyl (Dulcolax) 5 mg DAILY PRN PO .CONSTIPATION; Start 09/13/18 at 16:00 Bisacodyl (Dulcolax Supp) 10 mg DAILY PRN [place] .CONSTIPATION; Start 09/13/18 at 16:00 Sodium Biphosphate/ Sodium Phosphate (Fleet Enema) 133 ml DAILY PRN [place] .CONSTIPATION; Start 09/13/18 at 16:00 Zolpidem Tartrate (Ambien) 5 mg QHS PRN PO .INSOMNIA; Start 09/13/18 at 16:00 Piperacillin Sod/ Tazobactam Sod 100 ml @ 200 mls/hr Q6 IVPB Last administered on 09/14/18at 17:08; Admin Dose 200 MLS/HR; Start 09/13/18 at 19:00 Vancomycin HCl (Vanco Iv Per Pharmacy) VANCOMYCIN PER PHARMACY PER PROTOCOL XX ; Start 09/14/18 at 22:00 Hydromorphone HCl (Dilaudid) 0.5 mg Q4H PRN IV SEVERE PAIN LEVEL 7-10; Start 09/14/18 at 22:00 JESSA OBANDO MD Sep 14, 2018 22:01
[2018-09-14] MEDS ORDERED: VANCOMYCIN 1 GM 250 ML IVPB SCH (22:30)
[2018-09-15] MEDS: PIPER-TAZO 3.375 GM IV (PMX) 100 ML IVPB SCH (01:47)
[2018-09-15 03:00] VITALS: BP 133/82; PULSE 98; RESP 18
[2018-09-15] MEDS: morphine 4 MG/ML VIAL IV PRN (03:23)
[2018-09-15] MEDS ORDERED: VANCOMYCIN 750 MG (PMX) 250 ML IVPB SCH (06:00)
--- NOTE | 2018-09-16 09:24 | DS ---
Date/Time of Note Date/Time of Note DATE: 09/16/18 TIME: 09:19 Discharge Summary Admission/Discharge Info Admit Date/Time Sep 13, 2018 at 16:39 Discharge Date/Time Sep 15, 2018 at 03:45 Patient Condition: Fair Consults Dr Salter Procedures CT Abdomen and Pelvis with contrast FINDINGS: The visualized lung bases are clear. There is no pleural effusion. The liver, gallbladder, spleen, pancreas, adrenal glands, and left kidney are normal. There is mild right renal caliectasis without visible obstructing calculus. There is no evidence of intestinal obstruction. The appendix is normal. There is no abdominal aortic aneurysm. There is no free intraperitoneal air or fluid. Urinary bladder is partially distended and unremarkable. Uterus is within normal limits. Cystic right adnexal lesion measuring 5 x 1.5 cm is seen. There is no suspicious mesenteric or retroperitoneal lymphadenopathy. Mildly enlarged left inguinal lymph nodes measure up to 1.6 cm in short axis. Right inguinal lymph nodes measure up to 10 mm in short axis. Multiple subcentimeter bilateral pelvic sidewall lymph nodes are nonspecific. There is moderate presacral edema. There is moderate anterior perineal and peripubic subcutaneous fat stranding and edema. There is an irregular shape fluid collection in the anterior perineal region measuring approximately 4.3 x 1.6 x 2.4 cm. The osseous structures of the abdomen and pelvis are intact. IMPRESSION: 1. Marked inflammatory changes and subcutaneous edema in the anterior perineal and peripubic region with irregular fluid collection in the anterior perineal region concerning for abscess. 2. Cystic right adnexal lesion, may represent ovarian cysts or hydrosalpinx. Recommend follow-up pelvic sonogram. 3. Presacral edema. 4. Mild left inguinal lymphadenopathy. US Pelvis CLINICAL INDICATION: pelvic pain TCHNIQUE: Multiple sonographic images of the pelvis were obtained utilizing transabdominal technique. The images were reviewed on a PACS workstation. COMPARISON: None. FINDINGS: The uterus is normal in size with a normal appearance of the myometrium. The uterus measures 7.9 x 4.2 x 5.4 cm. The endometrial stripe is homogeneous in appearance and has the thickness of 8 mm. The ovaries are normal in size and echogenicity. Normal Doppler flow is identified in both ovaries. The right ovary measures 2.9 x 1.5 x 2.4 cm. The left ovary measures 2.9 x 1.8 x 1.9 cm. No free fluid is present within the pelvis. IMPRESSION: Unremarkable pelvic ultrasound. Hx of Present Illness Admitted w Vulvar Abscess Hospital Course A/P 1. Vulvar abscess, stable cont antibiotics; seen by OB- RESEARCH STATISTICIAN. Left AMA overnight. 2. Abn LFTs will evaluate w CT; and for hepatitis/ hiv. No pain or jaundice, asymptomatic 3. Tobacco abuse status post counseling 4. Sirs? /4 blood cx w cons, probable contaminant. 5. H/o Rectal abscess? 6. H/o Cellulitis/ abscess extremity 7. H/o Nephrolithiasis Home Meds Reported Medications Vits W-Ca,Fe,Fa(<1MG) () 1 Tab Tablet, 1 PO DAILY, #30 08/21/11 Primary Care Provider Care Physician No Primary Time spent on discharge: < 30 minutes JESSA OBANDO MD Sep 16, 2018 09:24
== END 2018-09-15 03:45 | disposition left against medical advice (07) | DRG 872 ==
LOC: FTE 11:05 → CANRESERV 15:22 → PP2 16:39
PROVIDERS: ADMIT Internal Medicine; ATTEND Internal Medicine
DX: A41.9 Sepsis, unspecified organism (principal); N75.1 Abscess of Bartholin's gland; Z72.0 Tobacco use; R65.20 Severe sepsis without septic shock
CPT/HCPCS: 36415; 74177; 76856; 80053; 80061; 81001; 81025; 83036; 83605; 83690; 83735; 84100; 84443; 85025; 85610; 86592; 86692; 86703; 86704; 86706; 86708; 86709; 86803; 87040; 87340; 87536; 87591; 96361; 96365; 96375; J1170; J2270; J2405; J2543; J3370; J7030